=== PATIENT | male | born 1995 | race Caucasian/White ===

== ENCOUNTER → 2021-04-13 09:45 | Outpatient (BNVA) | payer OTHER, SELFPAY | PROVIDERS: Family Provider Physician Assistant Medical; Visit Provider Nurse Practitioner Family | DX: L72.3 Sebaceous cyst (principal) | CPT/HCPCS: 87070 ==

== ENCOUNTER → 2022-08-31 16:28 | Outpatient (BNVA) | payer OTHER, SELFPAY | PROVIDERS: Family Provider Physician Assistant Medical; Visit Provider Nurse Practitioner | DX: J02.0 Streptococcal pharyngitis (principal); J02.9 Acute pharyngitis, unspecified | CPT/HCPCS: 87880 ==